=== PATIENT | female | born 1995 | race Caucasian/White ===

== ENCOUNTER 2020-02-17 21:48 | Inpatient (IN) ==
[2020-02-17] MEDS ORDERED: OXYTOCIN 30 UNITS/500 ML BAG IV PRN (22:21)
--- NOTE | 2020-02-17 22:24 | History & Physical Report ---
Date of Service February 17, 2020 Assessment & Plan (1) Encounter for supervision in primigravida, antepartum: labor, uncomp , GBS neg Admit. History of Present Illness Primary Care Provider: Gema Panda DO 39 weeks G1 presents in labor Allergies Allergy/AdvReac Type Severity Reaction Status Date / Time clarithromycin Allergy Mild Hives Verified 02/17/20 22:02 Home Medications Home Medications Medication Instructions Recorded Confirmed Type prenat.vits,dhara,usi-[id number] 1 tab PO DAILY 07/20/19 02/17/20 History Patient History Medical History (Updated 02/17/20 @ 22:02 by Mulu Gupta, LUISITO) Anxiety History of spontaneous No significant past medical history (Resolved) Prior miscarriage with , antepartum (Resolved) Varicella Surgical History History of elbow surgery History of wisdom tooth extraction Social History (Updated 07/20/19 @ 09:07 by Whitney Bean) Preferred Language: Liberian Communication Ability: Effective Beliefs That Will Affect Care: None marital status: Single marital status details: Marbin Liu (25) [phone] Current Living Situation: Significant Other Current Living Situation Comment: lives with spouse, 3 dogs current occupational status: employed current occupation: [employer] Feels Safe at Home: Yes Smoking Status: Never smoker Hx Alcohol Use: No Hx Substance Use: No Physical Exam Constitutional: WD/WN, vitals as above Respiratory: normal respiratory effort, lungs clear to auscultation Cardiovascular: RRR, no murmur, no edema Genitourinary: Manual OB Exam: + cervical dilation (4), + cervical effacement 60% and + station -2 OB Exam Monitor Tracing: + external FHT monitor used and + category I Results & Data Vital Signs (Past 12 Hours) Vital Signs Temp Pulse Resp BP 02/17/20 22:00 98.4 F 101 H 18 124/75 Coding Level of Care Code None Diagnoses Encounter for supervision in primigravida, antepartum Z34.00
[2020-02-17 22:54] LABS: Hematocrit (blood only) 33.7 % (37-47); Hemoglobin 11.1 g/dL (12.0-16.0); Mean Corpuscular Hgb Conc 32.9 g/dL (32-36); Mean Corpuscular Volume 91.1 fL (80-100); Mean Platelet Volume 10.2 fL (7.4-10.4); Platelet Count 252 K/uL (130-400); RDW Coefficient of Variation 13.2 % (11.5-14.5); RDW Standard Deviation 43.5 fL (36.4-46.3); White Blood Count 14.09 K/uL (4.8-10.8)
[2020-02-18] MEDS ORDERED: BUTORPHANOL TARTRATE 1 MG/ML VIAL IV PRN (01:21)
[2020-02-18] MEDS ORDERED: BUTORPHANOL TARTRATE 1 MG/ML VIAL ONE (01:34)
[2020-02-18] MEDS: LACTATED RINGER'S 1,000 ML IV PRN ×2 (04:36→06:07)
[2020-02-18] MEDS ORDERED: BUPIVACAINE 0.25% 30 ML VIAL ONE (04:41)
[2020-02-18] MEDS ORDERED: ePHEDrine sulfate 50 MG/ML AMP ONE (04:41)
[2020-02-18] MEDS ORDERED: fentaNYL citrate 100 MCG/2 ML VIAL ONE (04:41)
[2020-02-18] MEDS ORDERED: fentaNYL 2MCG/ML ROPIV 1.25MG/ML 100 ML BAG EPI ONE (04:42)
--- NOTE | 2020-02-18 05:30 | Anesthesiology Consultation ---
Date of Service February 18, 2020 Assessment & Plan Chart Review Chart Review: Acceptable Risk for Labor Epidural Consults Requested none History Height/Weight Height: 5 ft 4 in Weight: 88.451 kg Allergies Allergy/AdvReac Type Severity Reaction Status Date / Time clarithromycin Allergy Mild Hives Verified 02/17/20 22:02 Medications Home Medications Medication Instructions Recorded Confirmed Last Taken prenat.vits,dhara,sny-jyna-tthbj 1 tab PO DAILY 07/20/19 02/17/20 02/16/20 08:00 Active Medications Generic Name Dose Route Start Last Admin Trade Name Freq PRN Reason Stop Dose Admin Lactated Ringer's 1,000 mls @ 125 mls/hr 02/17/20 22:21 02/18/20 04:36 Lr IV 02/19/20 22: 999 mls/hr .Q8H PRN Administration L&D Protocol Protocol Past Medical History Medical History Anxiety History of spontaneous No significant past medical history (Resolved) Prior miscarriage with , antepartum (Resolved) Varicella Past Family History Family History Grandfather (Maternal) Colorectal cancer Other Diabetes Dyslipidemia Family history non-contributory Hypertension Past Surgical History Surgical History History of elbow surgery History of wisdom tooth extraction Social History Smoking Status: Never smoker Hx Alcohol Use: No Hx Substance Use: No substance use type: does not use Physical Exam Vital Signs Last Vital Signs Temp 36.7 C 02/18/20 03:41 Pulse 88 02/18/20 05:26 Resp 18 02/18/20 05:17 BP 104/56 L 02/18/20 05:26 Pulse Ox 97 02/18/20 05:26 Testing Laboratory Results 02/17/20 22:47
[2020-02-18] MEDS ORDERED: NALOXONE HCL 0.4 MG/1 ML VIAL/CARP IV PRN (05:32)
[2020-02-18] MEDS ORDERED: ePHEDrine sulfate 50 MG/ML AMP IV PRN (05:32)
[2020-02-18] MEDS ORDERED: fentaNYL 2MCG/ML ROPIV 1.25MG/ML 100 ML BAG EPI PRN (05:32)
[2020-02-18] MEDS ORDERED: DiphenhydrAMINE HCL 50 MG/ML VIAL IV PRN (05:32)
[2020-02-18] MEDS ORDERED: NALOXONE HCL 1 MG in SODIUM CHLORIDE 0.9% 1000ML 1,000 ML IV PRN (05:32)
[2020-02-18] MEDS ORDERED: NALBUPHINE HCL INJ 10 MG/ML AMP IV PRN (05:32)
--- NOTE | 2020-02-18 07:34 | Labor Progress Brief Note ---
Date of Service February 18, 2020 FHR cat 1, comfy with epidural Assessment & Plan (1) : AROM at 8cm, good progress, light mec Physical Exam Genitourinary: OB Exam Abdomen: + vertex Manual OB Exam: + cervical dilation 8 cm, + cervical effacement 100% and + station -1 OB Exam Monitor Tracing: + category I Results & Data Vital Signs (Past 12 Hours) Vital Signs Temp Pulse Resp BP Pulse Ox 02/18/20 07:29 72 112/65 02/18/20 07:26 76 97 02/18/20 07:21 89 97 02/18/20 07:16 88 96 02/18/20 07:14 98 H 112/63 02/18/20 07:11 86 98 02/18/20 07:06 90 99 02/18/20 07:01 119 H 112/77 97 02/18/20 06:56 84 99 02/18/20 06:51 91 H 96 02/18/20 06:46 76 98 02/18/20 06:45 76 16 119/71 02/18/20 06:41 99 H 99 02/18/20 06:36 101 H 99 02/18/20 06:31 83 97 02/18/20 06:30 62 16 120/64 02/18/20 06:26 77 98 02/18/20 06:21 88 100 02/18/20 06:16 76 99 02/18/20 06:14 99 H 18 106/58 L 02/18/20 06:11 85 98 02/18/20 06:07 96 H 92 02/18/20 06:06 100 H 96 02/18/20 06:01 68 96 02/18/20 05:57 68 18 97/51 L 02/18/20 05:56 67 96 02/18/20 05:51 70 16 99/51 L 98 02/18/20 05:47 64 16 105/51 L 02/18/20 05:46 63 97 02/18/20 05:41 80 99/54 L 97 02/18/20 05:37 64 16 100/54 L 02/18/20 05:36 69 96 02/18/20 05:31 81 16 98/53 L 97 02/18/20 05:26 88 18 104/56 L 97 02/18/20 05:23 88 18 97/56 L 02/18/20 05:21 89 98 02/18/20 05:20 93 H 99/52 L 02/18/20 05:17 96 H 18 98/58 L 02/18/20 05:16 90 97 02/18/20 05:14 82 18 112/53 L 02/18/20 05:11 92 H 115/56 L 97 02/18/20 05:08 76 20 135/70 02/18/20 05:06 76 99 02/18/20 05:01 75 100 02/18/20 04:56 64 99 02/18/20 04:52 66 93 02/18/20 04:51 63 98 02/18/20 04:46 78 20 109/59 L 96 02/18/20 03:41 98.1 F 62 20 127/77 02/18/20 01:12 97.5 F L 61 18 123/77 02/17/20 22:00 98.4 F 101 H 18 124/75 Coding Level of Care Code None Diagnoses Z34.90
--- NOTE | 2020-02-18 09:56 | Labor Progress Brief Note ---
Date of Service February 18, 2020 Subjective Reason For Note: Other (Change of provider) The patient is a 24-year-old 2 para 0 with an EDC of 21 February, at 39+ weeks gestational age and was admitted in active labor. Patient states that she was having regular contractions. Patient was admitted at 2200 hrs. on 16 February. Contractions increased in intensity and an epidural was placed. Artificial rupture membranes this a.m. at 0730 hrs. The patient has had a benign course. Her blood type is A+, antibody negative, rubella immune, hepatitis B negative, she had a negative cell free DNA screen, she declined a cystic fibrosis, SMA, and maternal serum AFP. The patient had a normal 1 hour Glucola x2, and a negative third trimester beta strep culture. Assessment & Plan (1) Encounter for supervision in primigravida, antepartum: -Tracing category 2 with accelerations and variability -Patient will begin her second stage -Anticipate vaginal delivery Physical Exam Constitutional: WD/WN, vitals as above Respiratory: Auscultation: lungs clear to auscultation bilaterally Cardiovascular: RRR, no murmur, no edema Extremities: no calf tenderness Gastrointestinal (Abdomen): Gravid, vertex, estimated weight of 8 pounds Genitourinary: Cervix: Fully dilated/+2 station Results & Data Vital Signs (Past 12 Hours) Vital Signs Temp Pulse Resp BP Pulse Ox 02/18/20 09:51 85 97 02/18/20 09:46 90 98 02/18/20 09:45 86 129/69 02/18/20 09:41 82 97 02/18/20 09:36 76 97 02/18/20 09:31 79 96 02/18/20 09:28 77 117/63 02/18/20 09:26 79 97 02/18/20 09:21 87 96 02/18/20 09:16 81 97 02/18/20 09:14 81 118/65 02/18/20 09:11 90 97 02/18/20 09:06 92 H 95 02/18/20 09:01 80 97 02/18/20 09:00 98.8 F 18 02/18/20 08:59 81 108/57 L 02/18/20 08:56 79 97 02/18/20 08:51 87 96 02/18/20 08:46 76 96 02/18/20 08:45 78 101/59 L 02/18/20 08:41 79 96 02/18/20 08:36 84 95 02/18/20 08:31 89 97 02/18/20 08:30 20 02/18/20 08:29 90 118/58 L 02/18/20 08:26 83 96 02/18/20 08:21 87 96 02/18/20 08:16 87 96 02/18/20 08:15 83 122/65 02/18/20 08:11 78 96 02/18/20 08:06 83 96 02/18/20 08:01 88 96 02/18/20 08:00 18 02/18/20 07:59 76 122/64 02/18/20 07:56 85 96 02/18/20 07:51 87 97 02/18/20 07:46 88 97 02/18/20 07:44 88 117/68 02/18/20 07:41 97 H 97 02/18/20 07:36 83 97 02/18/20 07:31 117 H 99 02/18/20 07:30 18 02/18/20 07:29 72 112/65 02/18/20 07:26 76 97 02/18/20 07:21 89 97 02/18/20 07:16 88 96 02/18/20 07:14 98 H 112/63 02/18/20 07:11 86 98 02/18/20 07:06 90 99 02/18/20 07:01 119 H 112/77 97 02 07:00 18 02/18/20 06:56 84 99 02/18/20 06:51 91 H 96 02 06:46 76 98 02 06:45 76 16 119/71 02/18/20 06:41 99 H 99 02 06:36 101 H 99 02 06:31 83 97 02 06:30 62 16 120/64 0502 06:26 77 98 02 06:21 88 100 02/18/20 06:16 76 99 02 06:14 99 H 18 106/58 L 02/18/20 06:11 85 98 02/18/20 06:07 96 H 92 02/18/20 06:06 100 H 96 05/02/20 06:01 68 96 02/18/20 05:57 68 18 97/51 L 02/18/20 05:56 67 96 02/18/20 05:51 70 16 99/51 L 98 02/18/20 05:47 64 16 105/51 L 02/18/20 05:46 63 97 02/18/20 05:41 80 99/54 L 97 02/18/20 05:37 64 16 100/54 L 02/18/20 05:36 69 96 02/18/20 05:31 81 16 98/53 L 97 02/18/20 05:26 88 18 104/56 L 97 02/18/20 05:23 88 18 97/56 L 02/18/20 05:21 89 98 02/18/20 05:20 93 H 99/52 L 02/18/20 05:17 96 H 18 98/58 L 02/18/20 05:16 90 97 02/18/20 05:14 82 18 112/53 L 02/18/20 05:11 92 H 115/56 L 97 02/18/20 05:08 76 20 135/70 02/18/20 05:06 76 99 02/18/20 05:01 75 100 02/18/20 04:56 64 99 02/18/20 04:52 66 93 02/18/20 04:51 63 98 02/18/20 04:46 78 20 109/59 L 96 02/18/20 03:41 98.1 F 62 20 127/77 02/18/20 01:12 97.5 F L 61 18 123/77 02/17/20 22:00 98.4 F 101 H 18 124/75 Coding Level of Care Code None Diagnoses Encounter for supervision in primigravida, antepartum Z34.00
--- NOTE | 2020-02-18 11:13 | Delivery Summary ---
Vaginal Delivery Summary Date of Service February 18, 2020 Vaginal Delivery Summary Findings: Viable female infant with Apgars of 8 and 9. Baby delivered over a midline second-degree laceration with superficial bilateral periurethral tears. Cord gases cord blood samples obtained. Placenta delivered spontaneously. Midline laceration repaired with 4-0 Vicryl in a routine fashion. Estimated blood loss 300 cc. Labor note: The patient is a 24-year-old 2 para 0 with an EDC of 21 February, at 39+ weeks gestational age and was admitted in active labor. Patient states that she was having regular contractions. The patient has had a benign course. Her blood type is A+, antibody negative, rubella immune, hepatitis B negative, she had a negative cell free DNA screen, she declined a cystic fibrosis, SMA, and maternal serum AFP. The p atient had a normal 1 hour Glucola x2, and a negative third trimester beta strep culture. The patient was admitted and felt to be in active labor. Tracing was category 2. Anesthesia was consulted and an epidural was placed. She had artificial rupture membranes with clear fluid. At this point delivering physician assumed care for the patient. Over the next 2 hours the patient progressed to full dilatation and began her second stage. She pushed for approximately 45 minutes delivering the viable female infant over a midline second-degree laceration. Cord gases and cord blood samples were obtained. Placenta was delivered spontaneously. Inspection of the perineum showed a midline second-degree laceration with bilateral superficial periurethral tears that were not bleeding. The midline laceration was repaired with 4-0 Vicryl. Estimated blood loss was 300 cc. Sponge and needle count was correct.
[2020-02-18 11:16] LABS: Base Excess Cord Venous Blood -0.3 mEq/L (-7.7-1.9); Cord Venous Blood HCO3 24 mmol/L (18.4-26.8); Cord Venous Blood PCO2 40 mmHg (30.4-57.2); Cord Venous Blood PO2 32 mmHg (14.1-43.3); Cord Venous Blood pH 7.41 (7.20-7.44); O2 Saturation Cord Venous Bld 68.6 % (<68)
[2020-02-18] MEDS ORDERED: ACETAMINOPHEN W/CODEINE #3 1 TAB PO PRN (11:16)
[2020-02-18] MEDS ORDERED: DIPHTHERIA/TETANUS/PERTUSSIS 0.5 ML SYR/VIAL IM ONE (11:16)
[2020-02-18] MEDS ORDERED: BENZOCAINE 20% AER SPR 82.5 GM CAN EXT PRN (11:16)
[2020-02-18] MEDS ORDERED: SUPERCREAM 0.870% 15 GM JAR EXT PRN (11:16)
[2020-02-18] MEDS ORDERED: HYDROCORTISONE ACETATE 25 MG SUPP PR PRN (11:16)
[2020-02-18] MEDS ORDERED: ACETAMINOPHEN 325 MG TAB PO PRN (11:16)
[2020-02-18] MEDS ORDERED: OXYTOCIN 30 UNITS/500 ML BAG IV PRN (11:16)
--- NOTE | 2020-02-18 13:08 | Anesthesia Procedure Note ---
Date of Service February 18, 2020 Anesthesia Post Epidural Note Vital Signs Vital Signs: Temp Pulse Resp BP Pulse Ox 37.1 C 133 H 18 108/68 98 02/18/20 09:00 02/18/20 12:54 02/18/20 11:10 02/18/20 12:54 02/18/20 10:51 Notes Mental Status: alert / awake / arousable and participated in evaluation Nausea / Vomiting: adequately controlled Pain: adequately controlled Airway Patency, RR, SpO2: stable & adequate BP & HR: stable & adequate Hydration State: stable & adequate Neuraxial Anesthesia: was administered and sensory block is resolving Anesthetic Complications: no major complications apparent and Pt Satisfied with anesthetic care Epidural: Removed without complications and With tip intact Notes: Epidural site clean, dry and intact. No signs of edema, erythema or bruising at insertion site. Pt instructed to request anesthesia if she has residual lower extremity numbness or if she develops lower extremity pain or weakness, back pain or headache.
[2020-02-18] MEDS: IBUPROFEN 600 MG TAB PO PRN ×2 (14:29→20:07)
[2020-02-18] MEDS: DOCUSATE SODIUM 100 MG CAP PO SCH (20:07)
[2020-02-19] MEDS: IBUPROFEN 600 MG TAB PO PRN ×2 (05:22→12:14)
[2020-02-19] MEDS: DOCUSATE SODIUM 100 MG CAP PO SCH (07:45)
[2020-02-19] MEDS ORDERED: PRENATAL VITAMIN 1 TAB PO SCH (08:00)
--- NOTE | 2020-02-19 08:32 | Obstetrical Progress Note ---
Date of Service February 19, 2020 Assessment & Plan (1) Encounter for supervision in primigravida, antepartum: - doing well - patient would like to be d/c - Peds declines to d/c baby at 24 hours - continue routine care Subjective Ambulation: ambulating normally Feeding Type:: breast feeding Physical Exam Constitutional WD/WN, vitals as above Gastrointestinal (Abdomen) Fundus firm below umbilicus Musculoskeletal No deep calf tenderness Results & Data Vital Signs (Past 12 Hours) Vital Signs Temp Pulse Resp BP Pulse Ox 02/19/20 04:30 97.9 F 88 16 115/74 98 02/18/20 23:50 97.9 F 84 20 115/74 98
--- NOTE | 2020-02-19 08:56 | Obstetrical Progress Note ---
Date of Service February 19, 2020 Assessment & Plan (1) Encounter for supervision in primigravida, antepartum: - Peds has cleared baby - d/c instructions given - f/u in 6 weeks Physical Exam Constitutional WD/WN, vitals as above Respiratory Auscultation: lungs clear to auscultation bilaterally Cardiovascular RRR, no murmur, no edema Extremities: no calf tenderness Results & Data Vital Signs (Past 12 Hours) Vital Signs Temp Pulse Resp BP Pulse Ox 02/19/20 04:30 97.9 F 88 16 115/74 98 02/18/20 23:50 97.9 F 84 20 115/74 98
[2020-02-19] MEDS ORDERED: bisacodyL 5 MG TABEC PO SCH (20:00)
== END 2020-02-19 19:35 | disposition home or self-care (01) | DRG 807 ==
LOC: OPB 21:48 → 4S1 21:49 → 4S2 02-18 16:40